=== PATIENT | male | born 1950 | race Caucasian/White ===

== ENCOUNTER 2021-01-11 22:03 | Emergency (ER) | payer OTHER ==
[2021-01-11 23:02] LABS: BASOPHIL 0.6 % (0-2); EOSINOPHIL 1.5 % (0-7); HCT 52.4 % (42.0-52.0); HGB 18.3 g/dl (13.2-18.0); LYMPHOCYTE 11.7 % (15-48); MCH 37.2 pg (25.0-31.0); MCHC 34.9 g/dL (32.0-36.0); MCV 106.5 fL (78.0-100.0); MONOCYTE 8.5 % (0-12); MPV 8.9 fL (6.0-9.5); NEUTROPHIL 77.3 % (41-80); NRBC 0; PLT 213 K/uL (150-400); RBC 4.92 M/uL (4.70-6.00); RDW 14.1 % (11.5-14.0); WBC 9.5 K/uL (4.0-10.5)
[2021-01-11 23:41] LABS: BILIRUBIN NEGATIVE (NEGATIVE); BLOOD 2+ Ery/uL (NEGATIVE); CLARITY CLEAR (CLEAR); COLOR YELLOW (YELLOW); GLUCOSE (U) NORMAL (NORMAL); LEUKOCYTES NEGATIVE Leu/uL (NEGATIVE); NITRITE NEGATIVE (NEGATIVE); PROTEIN TRACE (LOW) mg/dL (NEGATIVE); SPECIFIC GRAVITY 1.015 (1.001-1.030)
[2021-01-11 23:49] LABS: BACTERIA TRACE; URINARY WBC RARE
[2021-01-11 23:52] LABS: ALBUMIN 3.9 g/dL (3.4-5.0); BILIRUBIN - TOTAL 0.9 mg/dL (0.2-1.0); BUN/CREAT RATIO (CALC) 6.9 RATIO; CREATININE 1.44 mg/dL (0.67-1.17); GLOBULIN (CALCULATION) 2.8 g/dL; MAGNESIUM 2.2 mg/dL (1.8-2.4); POTASSIUM 5.3 mmol/L (3.5-5.1); TOTAL PROTEIN 6.7 g/dL (6.4-8.2)
[2021-01-12] MEDS ORDERED: HYDROCODON-ACE1 EAC2 PO (02:16)
== END 2021-01-12 02:59 | disposition home or self-care (01) ==
LOC: FER 22:03
PROVIDERS: Emergency Medicine
DX: S22.42XA Multiple fractures of ribs, left side, initial encounter for closed fracture (principal); N17.9 Acute kidney failure, unspecified; D75.1 Secondary polycythemia; N28.89 Other specified disorders of kidney and ureter; R31.9 Hematuria, unspecified; R42 Dizziness and giddiness; E87.5 Hyperkalemia; I10 Essential (primary) hypertension; F17.220 Nicotine dependence, chewing tobacco, uncomplicated; W01.198A Fall on same level from slipping, tripping and stumbling with subsequent striking against other object, initial encounter; Y92.009 Unspecified place in unspecified non-institutional (private) residence as the place of occurrence of the external cause
CPT/HCPCS: 36415; 70450; 71250; 80053; 81001; 82550; 83735; 84484; 85025; 93005; J1170; J7030